=== PATIENT | female | born 1950 | race Caucasian/White ===

== ENCOUNTER → 2017-10-31 08:51 | Outpatient (CLI) | payer MEDICARE, OTHER, SELFPAY ==
[2017-10-31 10:49] LABS: Ferritin 289 ng/mL (8-252)
== END ==
PROVIDERS: Family Provider Family Medicine; PCP Family Medicine; Visit Provider Internal Medicine Gastroenterology
DX: R79.89 Other specified abnormal findings of blood chemistry (principal)
CPT/HCPCS: 36415; 82728

== ENCOUNTER → 2018-01-31 08:53 | Outpatient (CLI) | payer MEDICARE, OTHER, SELFPAY ==
[2018-01-31 10:51] LABS: Ferritin 172 ng/mL (8-252)
[2018-01-31 11:04] LABS: Cholesterol 115 mg/dL (200); High Density Lipoprotein 38 mg/dL; Triglycerides 131 mg/dL; Very Low Density Lipoprotein 26 mg/dL (5-40)
== END ==
PROVIDERS: Family Provider Family Medicine; PCP Family Medicine; Visit Provider Internal Medicine Gastroenterology
DX: E78.00 Pure hypercholesterolemia, unspecified (principal); R79.89 Other specified abnormal findings of blood chemistry
CPT/HCPCS: 36415; 80061; 82728

== ENCOUNTER → 2018-05-14 10:45 | Outpatient (CLI) | payer MEDICARE, OTHER, SELFPAY ==
[2018-05-14 12:05] LABS: Absolute Lymphocyte Count 2.12 X10^3/ul (0.83-4.51); Absolute Neutrophil Count 2.5 X10^3/uL (2.0-7.7); Basophil# 0.03 X10^3/uL; Basophil% 0.5 % (0-1); Eosinophil# 0.09 X10^3/uL; Eosinophils% 1.6 % (0-5); Hematocrit 42.9 % (37-47); Hemoglobin 14.3 g/dl (12.0-15.0); Lymphocyte # 2.12 X10^3/ul (4.0); Lymphocyte % 38.7 % (19-41); Mean Corp Hgb Conc 33.3 g/gl (32-36); Mean Corpuscular Hgb 31.7 pg (27.0-32.0); Mean Corpuscular Volume 95.1 fL (81-99); Mean Platelet Vol. 10.1 fl (6.2-12.0); Monocyte# 0.76 X10^3/uL; Monocyte% 13.9 % (0-10); Neutrophil # 2.47 X10^3/uL (2.7-7.7); Neutrophil % 45.1 % (47-70); Platelet Count 266 K/mm3 (150-450); RBC Distribution Width CV 13.1 % (11.6-14.6); RBC Distribution Width SD 44.3 fl (35.1-43.9); Red Blood Count 4.51 M/mm3 (4.2-5.4); White Blood Count 5.5 K/mm3 (4.4-11.0)
[2018-05-14 12:07] LABS: POSITIVE COUNT NO; POSITIVE DIFFERENTIAL NO; POSITIVE MORPHOLOGY NO
[2018-05-14 12:15] LABS: Vitamin D,25 Hydroxy 31.4 ng/mL (29.95-100.01)
[2018-05-14 12:25] LABS: ALB/GLOB Ratio 1.1 RATIO (0.9-2.4); AST(SGOT) 40 U/L (15-37); Alanine Aminotransfer ALT/SGPT 48 U/L (13-56); Albumin, Serum 3.9 g/dL (3.2-5.0); Alkaline Phosphatase 62 U/L (45-117); Anion Gap 7 (5-15); BUN 9 mg/dL (7-18); BUN/Creat Ratio 14.5 RATIO (10-20); Chloride 107 mmol/L (98-107); Cholesterol 154 mg/dL (200); Creatinine, Serum 0.62 mg/dL (0.55-1.02); EST Glomerular Filtration Rate 102 mL/min (>60); Est Glom Filt Rate - Afr Amer 124 mL/min (>60); Ferritin 216 ng/mL (8-252); Globulin 3.6 g/dL (2.2-4.2); Glucose 95 mg/dL (74-106); High Density Lipoprotein 39 mg/dL; Potassium 4.4 mmol/L (3.5-5.1); Protein, Total 7.5 g/dL (6.4-8.2); Sodium Level 142 mmol/L (136-145); Thyroid Stim Hormone (TSH) 3.32 uIU/mL (0.358-3.74); Triglycerides 142 mg/dL; Very Low Density Lipoprotein 28 mg/dL (5-40)
== END ==
PROVIDERS: Family Provider Family Medicine; PCP Family Medicine; Visit Provider Family Medicine
DX: Z00.00 Encounter for general adult medical examination without abnormal findings (principal); K90.0 Celiac disease; E55.9 Vitamin D deficiency, unspecified; M25.50 Pain in unspecified joint; R79.89 Other specified abnormal findings of blood chemistry
CPT/HCPCS: 36415; 80053; 80061; 82306; 82728; 84443; 85025

== ENCOUNTER → 2018-05-15 10:10 | Outpatient (CLI) | payer MEDICARE, OTHER, SELFPAY ==
--- NOTE | 2018-05-15 10:13 | BI_ITS ---
MAMMOGRAPHY - BILATERAL SCREENING 3-D ELIZABETH SYNTHESIS REASON FOR EXAM: Female, 67 years old. Bilateral Screening 3-D tomosynthesis PERTINENT HISTORY: Asymptomatic. No significant family history. TECHNIQUE: 2-D mammograms and 3-D Elizabeth synthesis of the breast (s) were performed. CAD was performed. COMPARISON: 05/10/2017, 04/24/2015 and 04/23/2014. FINDINGS: The breast composition is heterogeneously dense that can obscure small breast masses. Scattered benign appearing calcifications are again seen. No dense spiculated dominant masses or suspicious microcalcification cluster are identified. No new architectural distortion, asymmetric density, adenopathy, skin thickening or nipple retraction identified. There has been no significant change since the most recent prior study. BI/SCREENING MAMM (CAD), BILAT IMPRESSION: No mammographic sign of malignancy. Routine yearly mammograms recommended. ASSESSMENT CATEGORY: BIRADS Category 2: Benign. A letter regarding these results will be sent to the patient by the facility within 30 days. FOLLOW UP RECOMMENDATION: Yearly follow up mammogram recommended. (A) Negative mammographic results should not deter biopsy as a palpable lesion if present should be followed on clinical grounds and biopsy performed if clinically persistent for 3 months or increasing size. Approximately 10% of breast cancers are not detected by mammography. A normal mammogram should not delay biopsy of a clinically suspicious abnormality. Dense breast tissue mainstream neoplasm. Electronically Signed: Des Berumen, at 14:40 EDT Tel , Service support ,
== END ==
PROVIDERS: Family Provider Family Medicine; PCP Family Medicine; Visit Provider Family Medicine
DX: Z12.31 Encounter for screening mammogram for malignant neoplasm of breast (principal)
CPT/HCPCS: 77063; 77067

== ENCOUNTER → 2018-10-29 08:30 | Outpatient (CLI) | payer MEDICARE, OTHER, SELFPAY ==
[2018-10-29 11:13] LABS: Ferritin 158 ng/mL (8-252)
== END ==
LOC: LAB.FUTURE 08:31 → MTLAB 01-29 07:55
PROVIDERS: Family Provider Family Medicine; PCP Family Medicine; Referring Provider Internal Medicine Gastroenterology; Visit Provider Internal Medicine Gastroenterology
DX: R79.89 Other specified abnormal findings of blood chemistry (principal)
CPT/HCPCS: 36415; 82728

== ENCOUNTER → 2019-01-29 08:02 | Outpatient (CLI) | payer MEDICARE, OTHER, SELFPAY ==
[2019-01-29 10:22] LABS: Ferritin 146 ng/mL (8-252)
== END ==
PROVIDERS: Family Provider Family Medicine; PCP Family Medicine; Referring Provider Internal Medicine Gastroenterology; Visit Provider Internal Medicine Gastroenterology
DX: R79.89 Other specified abnormal findings of blood chemistry (principal)
CPT/HCPCS: 36415; 82728

== ENCOUNTER → 2019-02-01 14:53 | Outpatient (CLI) | payer MEDICARE, OTHER, SELFPAY ==
[2019-02-04 18:45] LABS: Endomysial Antibody IgA Negative (Negative); Immunoglobulin A 75 mg/dL (87-352)
[2019-02-05 16:36] LABS: t-Transglutaminase IgA <2 U/mL (0-3)
== END ==
PROVIDERS: Family Provider Family Medicine; PCP Family Medicine; Referring Provider Internal Medicine Gastroenterology; Visit Provider Internal Medicine Gastroenterology
DX: R19.7 Diarrhea, unspecified (principal)
CPT/HCPCS: 36415; 82784; 83516; 86140; 86255

== ENCOUNTER → 2019-03-25 16:30 | Outpatient (CLI) | payer MEDICARE, OTHER, SELFPAY | PROVIDERS: Family Provider Family Medicine; PCP Family Medicine; Referring Provider Internal Medicine Gastroenterology; Visit Provider Internal Medicine Gastroenterology | DX: K90.0 Celiac disease (principal) | CPT/HCPCS: 36415 ==

== ENCOUNTER → 2019-05-16 10:22 | Outpatient (CLI) | payer MEDICARE, OTHER, SELFPAY ==
[2019-05-16 12:43] LABS: Microalbumin,Random Urine 5.8 mg/L (NO RANGE EST.); Microalbumin:Creatinine Ratio 10.3 mg/g CRE (<30 mg/g CRE)
[2019-05-16 12:45] LABS: Vitamin B12 840 pg/mL (211-911); Vitamin D,25 Hydroxy 31.9 ng/mL (29.95-100.01)
[2019-05-16 12:46] LABS: PTHIN 51.4 pg/mL (18.4-80.1)
[2019-05-16 13:29] LABS: ALB/GLOB Ratio 1.3 RATIO (0.9-2.4); AST(SGOT) 28 U/L (15-37); Alanine Aminotransfer ALT/SGPT 42 U/L (13-56); Albumin, Serum 4.3 g/dL (3.2-5.0); Alkaline Phosphatase 59 U/L (45-117); Anion Gap 6 (5-15); BUN 12 mg/dL (7-18); Calcium,Total 9.2 mg/dL (8.5-10.1); Chloride 109 mmol/L (98-107); Cholesterol 116 mg/dL (200); Creatinine, Serum 0.67 mg/dL (0.55-1.02); EST Glomerular Filtration Rate 93 mL/min (>60); Est Glom Filt Rate - Afr Amer 113 mL/min (>60); Globulin 3.3 g/dL (2.2-4.2); Glucose 92 mg/dL (74-106); High Density Lipoprotein 40 mg/dL; Magnesium 2.5 mg/dL (1.6-2.6); Potassium 4.7 mmol/L (3.5-5.1); Protein, Total 7.6 g/dL (6.4-8.2); Sodium Level 143 mmol/L (136-145); Thyroid Stim Hormone (TSH) 2.65 uIU/mL (0.358-3.74); Triglycerides 115 mg/dL; Very Low Density Lipoprotein 23 mg/dL (5-40)
[2019-05-20 13:06] LABS: Copper, Serum or Plasma 104 ug/dL (72-166); Zinc, Plasma or Serum 72 ug/dL (56-134)
== END ==
PROVIDERS: Family Provider Family Medicine; PCP Family Medicine; Referring Provider Family Medicine; Visit Provider Family Medicine
DX: E78.00 Pure hypercholesterolemia, unspecified (principal); K90.0 Celiac disease; E55.9 Vitamin D deficiency, unspecified; I10 Essential (primary) hypertension
CPT/HCPCS: 36415; 80053; 80061; 82043; 82306; 82525; 82570; 82607; 82746; 83735; 83970; 84443; 84630

== ENCOUNTER → 2019-06-05 08:09 | Outpatient (CLI) | payer MEDICARE, OTHER, SELFPAY ==
--- NOTE | 2019-06-05 08:12 | US_ITS ---
STUDY: ABDOMINAL ULTRASOUND - RIGHT UPPER QUADRANT REASON FOR VISIT: Female, 68 years old nausea, 50 liver, status post cholecystectomy. TECHNIQUE: Ultrasound evaluation of the right upper quadrant was performed with real-time and static vincent-scale imaging. TECHNICAL QUALITY: Limited. Examination limited by bowel gas. COMPARISON: None. FINDINGS: Liver: The liver measures 15.7 cm. There is increased echogenicity consistent with fatty infiltration. The bile ducts are within normal limits. There is hepatic color flow. The direction of portal flow is hepatopetal. There is no demonstrated mass lesion. Gallbladder: The patient is status post cholecystectomy into thousand 3. Common Bile Duct (C.B.D.): The common bile duct measures 7.1 mm. Pancreas: Normal size of the visualized portion of the body, remainder of the pancreas being obscured. There is normal echogenicity of the visualized pancreas. There is no demonstrated pancreatic mass or cyst in the visualized portion. Right Kidney: Normal size of the right kidney. The right kidney measures 11.5 x 5.4 x 4.9 cm. Normal renal cortex. The right cortex measures 1.4 cm. There is no demonstrated renal mass or cyst. There is no right hydronephrosis. There is slight malrotation of the right kidney with mild lobulations. US/Abdomen Limited IMPRESSION: Status post cholecystectomy, remainder of the right upper quadrant ultrasound examination unremarkable. Electronically Signed: Sachi Latham MD at 4:27 EDT , Service support ,
== END ==
PROVIDERS: Family Provider Family Medicine; PCP Family Medicine; Referring Provider Internal Medicine Gastroenterology; Visit Provider Internal Medicine Gastroenterology
DX: R11.0 Nausea (principal); K76.0 Fatty (change of) liver, not elsewhere classified; Z90.49 Acquired absence of other specified parts of digestive tract
CPT/HCPCS: 76705

== ENCOUNTER → 2019-11-20 11:25 | Outpatient (CLI) | payer MEDICARE, OTHER, SELFPAY ==
[2019-11-20 12:38] LABS: Anion Gap 4 (5-15); BUN 10 mg/dL (7-18); BUN/Creat Ratio 16.4 RATIO (10-20); Calcium,Total 9.4 mg/dL (8.5-10.1); Chloride 108 mmol/L (98-107); Creatinine, Serum 0.61 mg/dL (0.55-1.02); EST Glomerular Filtration Rate 104 mL/min (>60); Est Glom Filt Rate - Afr Amer 126 mL/min (>60); Glucose 89 mg/dL (74-106); Potassium 4.7 mmol/L (3.5-5.1); Sodium Level 142 mmol/L (136-145)
== END ==
PROVIDERS: PCP Family Medicine; Referring Provider Family Medicine; Visit Provider Family Medicine
DX: I10 Essential (primary) hypertension (principal)
CPT/HCPCS: 36415; 80048

== ENCOUNTER → 2020-05-19 09:39 | Outpatient (CLI) | payer MEDICARE, OTHER, SELFPAY ==
[2020-05-19 12:59] LABS: Microalbumin,Random Urine 8.9 mg/L (NO RANGE EST.); Microalbumin:Creatinine Ratio 12.2 mg/g CRE (<30 mg/g CRE)
[2020-05-19 13:12] LABS: Vitamin B12 523 pg/mL (211-911); Vitamin D,25 Hydroxy 46.9 ng/mL
[2020-05-19 13:17] LABS: ALB/GLOB Ratio 1.2 RATIO (0.9-2.4); AST(SGOT) 24 U/L (15-37); Alanine Aminotransfer ALT/SGPT 33 U/L (13-56); Alkaline Phosphatase 58 U/L (45-117); Anion Gap 5 (5-15); BUN 11 mg/dL (7-18); Calcium,Total 8.8 mg/dL (8.5-10.1); Chloride 107 mmol/L (98-107); Cholesterol 132 mg/dL (200); Creatinine, Serum 0.61 mg/dL (0.55-1.02); EST Glomerular Filtration Rate 103 mL/min (>60); Est Glom Filt Rate - Afr Amer 125 mL/min (>60); Ferritin 131 ng/mL (8-252); Globulin 3.3 g/dL (2.2-4.2); Glucose 88 mg/dL (74-106); High Density Lipoprotein 42 mg/dL; Potassium 4.2 mmol/L (3.5-5.1); Protein, Total 7.3 g/dL (6.4-8.2); Sodium Level 140 mmol/L (136-145); Thyroid Stim Hormone (TSH) 3.27 uIU/mL (0.358-3.74); Triglycerides 175 mg/dL; Very Low Density Lipoprotein 35 mg/dL (5-40)
== END ==
PROVIDERS: PCP Family Medicine; Referring Provider Family Medicine; Visit Provider Family Medicine
DX: E55.9 Vitamin D deficiency, unspecified (principal); K90.0 Celiac disease; I10 Essential (primary) hypertension; E78.00 Pure hypercholesterolemia, unspecified
CPT/HCPCS: 36415; 80053; 80061; 82043; 82306; 82570; 82607; 82728; 84443

== ENCOUNTER 2020-05-20 09:13 | Outpatient (RCR) | payer MEDICARE, OTHER, SELFPAY ==
--- NOTE | 2020-05-20 10:31 | HP.OTEVAL_ITS ---
Patient's Visit Information JACQUE WINSTON is a 69 year old F, referred to Occupational Therapy by Dr. Marcus Bernal MD, with a diagnosis of right LE lymphedema. Date of Evaluation: 05/20/20 Occupational Therapist: Marcia Worrell, OTR/Deion, CHT - Subjective This 69 year old female was seen for OT eval for right LE edema. pt states she has had swelling in her ankle for about 2 years. pt states she had right knee sx about two years ago and notices her right leg is larger than her left. pt states most noticable with putting pants on- pants are tighter on right leg then left. pt does not have compression hose. pt is getting ready to leave for [place] for the winter. - Lymphedema (Circumferential Measure) Mid-foot: right 22cm left 22cm Ankle: right 23cm left 23cm Lower calf: right 25cm left 23cm Largest calf: right 42cm left 41cm Below knee: right 39.5cm left 38.5cm - Sensation Sensation Comments: denies - Goals Demonstrate adequate knowledge skin care/prec by 2nd week: Yes Demonstrate adequate knowledge therapeutic exercises by d/c: Yes Select approp compression garment w/donning/care/wear by d/c: Yes Voice need to replace compression garment every 4-6mo by dc: Yes - Rehabilitation General Assessment: pt demo with stage I lymphedema and would benefit from use of compression socks 15-20mmHg. Today therapist ed. pt on use of compression socks, skin care and beneficial exercises. pt demo understanding. Pt receptive to get compression socks- therapist ed. pt on fit and compression class and where to buy the socks- This facility is not a Durable medical supply facility and can not get the garments for pt pt advised to look at [employer]/ [facility] [employer] [facility]. pt demo understanding and agree. pt to call with questions or concerns prior to her travel to [place] for the winter. Rehabilitation Potential: Good - Anticipated Interventions Education re Diagnosis, Education re Life-long lymphedema Management, Education re Skin Care and Precautions, Education re Correct Donning Tech,Care&Wearing Sched Comp Garments, Home Program - Visit Plan TEXT: Thank you for the opportunity to evaluate your patient. For Medicare and Medicare HMO plans, please review the plan of care and approve it. It will need to be FAXED BACK to us at [phone] for Medicare purposes. Please let me know if there are questions or concerns regarding this plan of care. Physician Signature: Date:
--- NOTE | 2020-07-07 13:52 | HP.OT.NRP ---
JACQUE WINSTON was seen in my office for initial evaluation on 05/20/20. The following Plan of Care was established for this patient: Anticipated Interventions: Education re Diagnosis, Education re Life-long lymphedema Management, Education re Skin Care and Precautions, Education re Correct Donning Tech,Care&Wearing Sched Comp Garments, Home Program This patient was last seen in our office 05/20/20. Pertinent comments regarding their Occupational therapy will appear below: pt seen for eval only- no further apts scheduled and due to time lapse in services pt d/c. At this point I will be discontinuing this patient from occupational therapy. I would be happy to see this patient again in the future if found appropriate by the physician. Thank you! Marcia Worrell, OTR/L, CHT
== END 2020-05-20 19:00 | disposition home or self-care (01) ==
LOC: OT 09:13
PROVIDERS: PCP Family Medicine; Referring Provider Family Medicine; Visit Provider Family Medicine
DX: I89.0 Lymphedema, not elsewhere classified (principal)
CPT/HCPCS: 97165; 97166; 97530

== ENCOUNTER → 2020-06-08 07:43 | Outpatient (CLI) | payer MEDICARE, OTHER, SELFPAY ==
--- NOTE | 2020-06-08 07:48 | BI_ITS ---
MAMMOGRAPHY - BILATERAL SCREENING REASON FOR EXAM: Female, 69 years old. Routine annual screening examination. PERTINENT HISTORY: Non-contributory. TECHNIQUE: Digital bilateral breast elizabeth (3D mammographic acquisition) in the CC and MLO projections. 2-D mediolateral oblique (MLO) and craniocaudad (CC) views of both breasts were obtained. CAD: Full Field Digital Mammography with Computer Added Detection was performed. COMPARISON: Comparison is made with prior study of 05/15/2018 and 05/10/2017. FINDINGS: Breast Composition: There are scattered areas of fibroglandular density. There are no dominant masses or suspicious calcifications. Stable benign-appearing bilateral axillary lymph nodes. No other significant abnormalities are identified. There has been no significant change since the prior study. BI/SCREEN MAMM (CAD) W/ELIZABETH BILAT IMPRESSION: Stable bilateral screening mammogram. Yearly follow-up mammogram recommended. (A) ASSESSMENT CATEGORY: BIRADS Category 2: Benign. A letter regarding these results will be sent to the patient by the facility within 30 days. Approximately 10% of breast cancers are not detected by mammography. A normal mammogram should not delay biopsy of a clinically suspicious abnormality. [id number] Electronically Signed: Tung Salazar, at 8:47 EST , Service support ,
== END ==
PROVIDERS: PCP Family Medicine; Referring Provider Family Medicine; Visit Provider Family Medicine
DX: Z12.31 Encounter for screening mammogram for malignant neoplasm of breast (principal)
CPT/HCPCS: 77063; 77067

== ENCOUNTER → 2020-12-02 08:39 | Outpatient (CLI) | payer MEDICARE, OTHER, SELFPAY ==
[2020-12-02 10:26] LABS: Absolute Lymphocyte Count 2.71 X10^3/uL (0.83-4.51); Absolute Neutrophil Count 4.6 X10^3/uL (2.0-7.7); Basophil# 0.03 X10^3/uL; Basophil% 0.4 % (0-1); Eosinophil# 0.09 X10^3/uL; Eosinophils% 1.1 % (0-5); Hematocrit 44.5 % (37-47); Hemoglobin 13.7 g/dL (12.0-15.0); Lymphocyte # 2.71 X10^3/ul (0.83-4.51); Mean Corp Hgb Conc 30.8 g/dL (32-36); Mean Corpuscular Volume 97.4 fL (81-99); Mean Platelet Vol. 9.9 fl (6.2-12.0); Monocyte# 0.74 X10^3/uL; NRBC Flagged by Analyzer 0 % (0-5); Neutrophil # 4.61 X10^3/uL (2.7-7.7); Neutrophil % 56.1 % (47-70); Platelet Count 257 K/mm3 (150-450); RBC Distribution Width CV 13.4 % (11.6-14.6); RBC Distribution Width SD 48.2 fl (35.1-43.9); Red Blood Count 4.57 M/mm3 (4.2-5.4); White Blood Count 8.2 K/mm3 (4.4-11.0)
[2020-12-02 10:38] LABS: ALB/GLOB Ratio 1.1 RATIO (0.9-2.4); AST(SGOT) 18 U/L (15-37); Alanine Aminotransfer ALT/SGPT 31 U/L (13-56); Albumin, Serum 3.7 g/dL (3.2-5.0); Alkaline Phosphatase 53 U/L (45-117); Anion Gap 5 (5-15); BUN 17 mg/dL (7-18); BUN/Creat Ratio 23.2 RATIO (10-20); Calcium,Total 8.7 mg/dL (8.5-10.1); Chloride 107 mmol/L (98-107); Creatinine, Serum 0.73 mg/dL (0.55-1.02); EST Glomerular Filtration Rate 84 mL/min (>60); Est Glom Filt Rate - Afr Amer 101 mL/min (>60); Globulin 3.3 g/dL (2.2-4.2); Glucose 105 mg/dL (74-106); Potassium 4.4 mmol/L (3.5-5.1); Sodium Level 139 mmol/L (136-145)
== END ==
PROVIDERS: PCP Family Medicine; Referring Provider Family Medicine; Visit Provider Family Medicine
DX: N30.00 Acute cystitis without hematuria (principal); K90.0 Celiac disease
CPT/HCPCS: 36415; 80053; 85025; 87077; 87086; 87088; 87186

== ENCOUNTER → 2021-05-25 07:18 | Outpatient (CLI) | payer MEDICARE, OTHER, SELFPAY ==
--- NOTE | 2021-05-25 07:29 | MRI_ITS ---
STUDY: MRI RIGHT FOREFOOT WITHOUT CONTRAST REASON FOR EXAM: Discomfort of right second toe for about 3 months. TECHNIQUE: Standardized fat and water weighted pulse sequences were obtained in all 3 orthogonal planes. COMPARISON: Radiographs 03/26/2013. FINDINGS: Normal metatarsophalangeal joint of the hallux. Normal tibial and fibular sesamoids, with normal sesamoids-first metatarsal articulations. Normal interphalangeal joint of the hallux. Normal proximal and distal phalanges of the great toe. Normal medial and lateral heads of the flexor hallucis brevis tendons. Normal flexor and extensor hallucis longus tendons. Normal second through fifth metatarsophalangeal (MTP) joints. Normal interphalangeal joints of the second through fifth toes. There is bone edema of the second proximal phalanx, sparing only the head (inversion recovery sagittal image 15). Normal middle and distal phalanges of the second digit. Normal proximal, middle and distal phalanges of the third through fifth toes. There is an intermetatarsal neuroma of the second webspace (T1 series 4 images 15, 16) measuring 0.5 cm in transverse dimension. Normal flexor and extensor tendons of the second through fifth toes. There is slight bone edema in the dorsal base of the fourth metatarsal (inversion recovery sagittal image 9). There is no metatarsal stress fracture. There is an incidental bone island in the dorsal distal first metatarsal (T1 sagittal image 20). Normal intrinsic muscles of the forefoot. There is very mild edema in the dorsal subcutis adipose space. MRI/Lower Ext/No Jt/w/o IMPRESSION: Intermetatarsal neuroma of the second webspace. Bone edema of the second proximal phalanx. Slight bone edema in the dorsal fourth metatarsal base. Electronically Signed: Triston Yoo MD at 13:39 EDT Tel , Service support ,
== END ==
PROVIDERS: PCP Family Medicine; Referring Provider Podiatrist; Visit Provider Podiatrist
DX: M77.41 Metatarsalgia, right foot (principal)
CPT/HCPCS: 73718

== ENCOUNTER → 2021-05-26 09:56 | Outpatient (CLI) | payer MEDICARE, OTHER, SELFPAY ==
[2021-05-26 12:19] LABS: CRP < 2.90 mg/L (0.0-3.0)
[2021-05-27 17:07] LABS: Endomysial Antibody IgA Negative (Negative); Immunoglobulin A 83 mg/dL (87-352)
[2021-05-28 08:18] LABS: t-Transglutaminase IgA <2 U/mL (0-3)
== END ==
PROVIDERS: PCP Family Medicine; Referring Provider Internal Medicine Gastroenterology; Visit Provider Internal Medicine Gastroenterology
DX: K90.0 Celiac disease (principal)
CPT/HCPCS: 36415; 82784; 83516; 86140; 86255

== ENCOUNTER → 2021-06-01 09:39 | Outpatient (CLI) | payer MEDICARE, OTHER, SELFPAY ==
[2021-06-01 12:22] LABS: Absolute Lymphocyte Count 2.33 X10^3/uL (0.83-4.51); Absolute Neutrophil Count 2.9 X10^3/uL (2.0-7.7); Basophil# 0.05 X10^3/uL; Basophil% 0.8 % (0-1); Eosinophil# 0.11 X10^3/uL; Eosinophils% 1.8 % (0-5); Hematocrit 44.7 % (37-47); Hemoglobin 14.8 g/dL (12.0-15.0); Lymphocyte # 2.33 X10^3/ul (0.83-4.51); Lymphocyte % 38.4 % (19-41); Mean Corp Hgb Conc 33.1 g/dL (32-36); Mean Corpuscular Hgb 31.2 pg (27.0-32.0); Mean Corpuscular Volume 94.3 fL (81-99); Mean Platelet Vol. 10.6 fl (6.2-12.0); Monocyte# 0.66 X10^3/uL; Monocyte% 10.9 % (0-10); NRBC Flagged by Analyzer 0 % (0-5); Neutrophil % 47.9 % (47-70); Platelet Count 255 K/mm3 (150-450); RBC Distribution Width SD 45.2 fl (35.1-43.9); Red Blood Count 4.74 M/mm3 (4.2-5.4); White Blood Count 6.1 K/mm3 (4.4-11.0)
[2021-06-01 12:34] LABS: Vitamin B12 753 pg/mL (211-911); Vitamin D,25 Hydroxy 35.7 ng/mL
[2021-06-01 12:52] LABS: ALB/GLOB Ratio 1.1 RATIO (0.9-2.4); AST(SGOT) 20 U/L (15-37); Alanine Aminotransfer ALT/SGPT 29 U/L (13-56); Albumin, Serum 4.2 g/dL (3.2-5.0); Alkaline Phosphatase 61 U/L (45-117); Anion Gap 9 (5-15); BUN 14 mg/dL (7-18); BUN/Creat Ratio 21.9 RATIO (10-20); Calcium,Total 9.1 mg/dL (8.5-10.1); Chloride 107 mmol/L (98-107); Cholesterol 136 mg/dL (200); Creatinine, Serum 0.64 mg/dL (0.55-1.02); EST Glomerular Filtration Rate 98 mL/min (>60); Est Glom Filt Rate - Afr Amer 118 mL/min (>60); Ferritin 153 ng/mL (8-252); Globulin 3.8 g/dL (2.2-4.2); Glucose 101 mg/dL (74-106); High Density Lipoprotein 44 mg/dL; Potassium 4.2 mmol/L (3.5-5.1); Sodium Level 140 mmol/L (136-145); Triglycerides 142 mg/dL; Very Low Density Lipoprotein 28 mg/dL (5-40)
== END ==
PROVIDERS: PCP Family Medicine; Referring Provider Family Medicine; Visit Provider Family Medicine
DX: K90.0 Celiac disease (principal); E78.00 Pure hypercholesterolemia, unspecified
CPT/HCPCS: 36415; 80053; 80061; 82306; 82607; 82728; 85025

== ENCOUNTER → 2021-06-14 07:43 | Outpatient (CLI) | payer MEDICARE, OTHER, SELFPAY ==
--- NOTE | 2021-06-14 07:45 | US_ITS ---
STUDY: ABDOMINAL ULTRASOUND - RIGHT UPPER QUADRANT REASON FOR VISIT: Female, 70 years old FATTY LIVER TECHNIQUE: Ultrasound evaluation of the right upper quadrant was performed with real-time and static vincent-scale imaging. TECHNICAL QUALITY: Adequate. COMPARISON: Comparison is made with prior examination dated 06/05/2019. FINDINGS: Liver: The liver measures 15.9 cm. There is increased echogenicity consistent with fatty infiltration. The bile ducts are within normal limits. There is hepatic color flow. The direction of portal flow is hepatopetal. There is no demonstrated mass lesion. Gallbladder: The patient is status post cholecystectomy. Common Bile Duct (C.B.D.): The common bile duct measures 7.2 mm. Pancreas: Normal size of the head, body and tail of the pancreas. There is increased echogenicity of the pancreas. There is no demonstrated pancreatic mass or cyst. Right Kidney: Normal size of the right kidney. The right kidney measures 11.3 cm x 3.5 cm x 5 cm. Normal renal cortex. The right cortex measures 1.5 cm. There is no demonstrated renal mass or cyst. There is no right hydronephrosis. IMPRESSION: Fatty infiltration of the liver. The patient is status post cholecystectomy. Electronically Signed: Tung Salazar MD at 9:01 EST , Service support , STUDY: ABDOMINAL ULTRASOUND - ELASTOGRAPHY REASON FOR VISIT: Female, 70 years old. Fatty infiltration of the liver. TECHNIQUE: Liver stiffness measurements were obtained on a [employer] 85 ultrasound machine using a CA 1-7 probe following the SRU guidelines. 3 measurements were obtained using a 2-D-SWE method. The IQR/M was 20% suggesting a quality data set. TECHNICAL QUALITY: Adequate. COMPARISON: None. FINDINGS: Liver: There is diffuse fatty infiltration of the liver. Median liver stiffness measured 6.4 kPa. US/Abdomen Limited IMPRESSION: Liver stiffness measures 6.4 kPa compatible with F2 Metavir score. Electronically Signed: Tung Salazar MD at 9:03 EST , Service support ,
--- NOTE | 2021-06-14 07:46 | US_ITS ---
STUDY: ABDOMINAL ULTRASOUND - RIGHT UPPER QUADRANT REASON FOR VISIT: Female, 70 years old FATTY LIVER TECHNIQUE: Ultrasound evaluation of the right upper quadrant was performed with real-time and static vincent-scale imaging. TECHNICAL QUALITY: Adequate. COMPARISON: Comparison is made with prior examination dated 06/05/2019. FINDINGS: Liver: The liver measures 15.9 cm. There is increased echogenicity consistent with fatty infiltration. The bile ducts are within normal limits. There is hepatic color flow. The direction of portal flow is hepatopetal. There is no demonstrated mass lesion. Gallbladder: The patient is status post cholecystectomy. Common Bile Duct (C.B.D.): The common bile duct measures 7.2 mm. Pancreas: Normal size of the head, body and tail of the pancreas. There is increased echogenicity of the pancreas. There is no demonstrated pancreatic mass or cyst. Right Kidney: Normal size of the right kidney. The right kidney measures 11.3 cm x 3.5 cm x 5 cm. Normal renal cortex. The right cortex measures 1.5 cm. There is no demonstrated renal mass or cyst. There is no right hydronephrosis. IMPRESSION: Fatty infiltration of the liver. The patient is status post cholecystectomy. Electronically Signed: Tung Salazar MD at 9:01 EST , Service support , STUDY: ABDOMINAL ULTRASOUND - ELASTOGRAPHY REASON FOR VISIT: Female, 70 years old. Fatty infiltration of the liver. TECHNIQUE: Liver stiffness measurements were obtained on a [employer] 85 ultrasound machine using a CA 1-7 probe following the SRU guidelines. 3 measurements were obtained using a 2-D-SWE method. The IQR/M was 20% suggesting a quality data set. TECHNICAL QUALITY: Adequate. COMPARISON: None. FINDINGS: Liver: There is diffuse fatty infiltration of the liver. Median liver stiffness measured 6.4 kPa. US/Elastography Parenchyma/Organ IMPRESSION: Liver stiffness measures 6.4 kPa compatible with F2 Metavir score. Electronically Signed: Tung Salazar MD at 9:03 EST , Service support ,
[2021-06-15 16:33] LABS: Immunoglobulin G 999 mg/dL (586-1602)
== END ==
PROVIDERS: PCP Family Medicine; Referring Provider Internal Medicine Gastroenterology; Visit Provider Internal Medicine Gastroenterology
DX: K76.0 Fatty (change of) liver, not elsewhere classified (principal); K90.0 Celiac disease
CPT/HCPCS: 36415; 76705; 76981; 82784; 83516

== ENCOUNTER → 2022-01-05 | Outpatient (CLI) | payer MEDICARE, OTHER, SELFPAY ==
[2022-01-05 10:04] LABS: Hematocrit 41.9 % (37-47); Hemoglobin 13.9 g/dL (12.0-15.0); Mean Corp Hgb Conc 33.2 g/dL (32-36); Mean Corpuscular Volume 93.5 fL (81-99); Mean Platelet Vol. 10.4 fl (6.2-12.0); Platelet Count 235 K/mm3 (150-450); RBC Distribution Width CV 12.5 % (11.6-14.6); Red Blood Count 4.48 M/mm3 (4.2-5.4); White Blood Count 5.8 K/mm3 (4.4-11.0)
[2022-01-05 10:47] LABS: Vitamin D,25 Hydroxy 49.7 ng/mL
[2022-01-05 11:08] LABS: ALB/GLOB Ratio 1.1 RATIO (0.9-2.4); AST(SGOT) 21 U/L (15-37); Alanine Aminotransfer ALT/SGPT 32 U/L (13-56); Albumin, Serum 3.8 g/dL (3.2-5.0); Alkaline Phosphatase 58 U/L (45-117); Anion Gap 8 (5-15); BUN 11 mg/dL (7-18); BUN/Creat Ratio 19.2 RATIO (10-20); Calcium,Total 8.9 mg/dL (8.5-10.1); Chloride 108 mmol/L (98-107); Creatinine, Serum 0.57 mg/dL (0.55-1.02); EST Glomerular Filtration Rate 111 mL/min (>60); Est Glom Filt Rate - Afr Amer 134 mL/min (>60); Globulin 3.4 g/dL (2.2-4.2); Glucose 113 mg/dL (74-106); Potassium 3.9 mmol/L (3.5-5.1); Protein, Total 7.2 g/dL (6.4-8.2); Sodium Level 141 mmol/L (136-145)
[2022-01-06 17:07] LABS: Endomysial Antibody IgA Negative (Negative)
[2022-01-07 08:44] LABS: Immunoglobulin A 87 mg/dL (87-352); t-Transglutaminase IgA <2 U/mL (0-3)
== END | disposition home or self-care (01) ==
LOC: MTLAB 09:02
PROVIDERS: PCP Family Medicine; Referring Provider Internal Medicine Gastroenterology; Visit Provider Internal Medicine Gastroenterology
DX: K90.0 Celiac disease (principal)
CPT/HCPCS: 36415; 80053; 82306; 82784; 83516; 85027; 86255

== ENCOUNTER → 2022-02-25 | Outpatient (CLI) | payer MEDICARE, OTHER, SELFPAY ==
--- NOTE | 2022-02-25 07:03 | CT_ITS ---
STUDY: CT CHEST WITHOUT CONTRAST REASON FOR EXAM: Female, 71 years old. Asthma RADIATION DOSAGE (If Supplied By Facility): CTDIvol = ( 15.08 ) mGy, DLP = ( 545.67 ) mGycm TECHNIQUE: Transaxial imaging was performed without the administration of intravenous contrast material. Multiplanar coronal and sagittal images were reformatted. Individualized dose optimization techniques were used for this CT. COMPARISON: Comparison is made with prior chest radiograph dated 12/03/2014. FINDINGS: CHEST Small benign-appearing bilateral axillary lymph nodes. Minimally enlarged right lobe of the thyroid gland. Mild degree of increased markings in the posterior aspect of the lingular segment of the left upper lobe as well as in the medial aspect of the right middle lobe suggestive of either scarring and/or atelectasis. This was seen on prior chest radiograph There is no demonstrated pleural abnormality. There are calcifications of the coronary arteries. There are multiple small lymph nodes within the mediastinum, which are normal in size and morphology most compatible with reactive lymph hyperplasia. Normal hilar regions. Normal unenhanced pulmonary arteries. There is atherosclerotic calcification of the aortic arch. There are multi-level degenerative changes of the thoracic spine. Small hiatal hernia. CT/Chest without Contrast IMPRESSION: Mild scarring and/or atelectasis along the posterior aspect of the lingular segment of the left upper lobe as well as the medial aspect of the right middle lobe. Electronically Signed: Tung Salazar MD at 8:27 EDT ,
== END | disposition home or self-care (01) ==
LOC: CT 07:01
PROVIDERS: PCP Family Medicine; Referring Provider Family Medicine; Visit Provider Family Medicine
DX: J45.901 Unspecified asthma with (acute) exacerbation (principal)
CPT/HCPCS: 71250

== ENCOUNTER → 2022-11-15 | Outpatient (CLI) | payer MEDICARE, OTHER, SELFPAY ==
--- NOTE | 2022-11-15 13:05 | BI_ITS ---
MAMMOGRAPHY - BILATERAL SCREENING 3-D TOMOSYNTHESIS REASON FOR EXAM: Female, 72 years old. SCREENING PERTINENT HISTORY: No significant family history. TECHNIQUE: 2-D mammograms and 3-D Tomosynthesis of the breast (s) were performed. CAD was performed. COMPARISON: 06/08/2020 FINDINGS: The breast composition is composed of scattered fibroglandular density. Scattered benign calcifications are seen. No dense spiculated masses or suspicious microcalcifications are identified. No architectural distortion is identified. There is no skin thickening or retraction. There has been no significant change since the prior study. BI/SCRN MAMM (CAD)W/ELIZABETH BILAT IMPRESSION: No mammographic signs of malignancy. Routine yearly mammograms recommended. ASSESSMENT CATEGORY: BIRADS Category 2: Benign. A letter regarding these results will be sent to the patient by the facility within 30 days. FOLLOW UP RECOMMENDATION: Yearly follow up mammogram recommended. (A) Approximately 10% of breast cancers are not detected by mammography. A normal mammogram should not delay biopsy of a clinically suspicious abnormality. Electronically Signed: Henrique Caraballo MD at 14:13 EDT ,
--- NOTE | 2022-11-15 13:17 | BD_ITS ---
STUDY: DUAL ENERGY X-RAY ABSORPTIOMETRY / DXA REASON FOR EXAM: Female, 72 years old. [id number] TECHNIQUE: Bone Mineral Density (BMD) measurements of lumbar spine and bilateral hips were obtained. COMPARISON: Comparison is made with prior study of May 10, 2017. FINDINGS: Lumbar Spine (L1-L4): g/cm2 (0.918) / T-score (-0.6) / Z-score (1.5) Findings are suggestive of normal bone density with a low fracture risk. Left Femur Total: g/cm2 (1.072) / T-score (1.1) / Z-score (2.6) Left Femoral Neck: g/cm2 (0.877) / T-score (0.2) / Z-score (2.1) Right Femur Total: g/cm2 (1.000) / T-score (0.5) / Z-score (2.0) Right Femoral Neck: g/cm2 (0.818) / T-score (-0.3) / Z-score (1.6) The T-Scores on the most recent prior examination were: Lumbar Spine (L1-L4): There has been worsening of bone density since the previous examination. Left Femur Total: which represents no significant change. . Right Femur Total: which represents a worsening of 1.4%. BD/Dexa Bone Density Study IMPRESSION: The patient is considered normal as outlined below according to World [place] Organization (WHO) criteria with a low fracture risk. There has been worsening of bone density since the previous examination. Reference Information: The T-score is the number of standard deviations above or below the standard which is normal for young adults at their peak bone mineral density. The World Health Organization (WHO) interprets the T-scores as follows: Above -1 Normal bone density Between -1 and -2.5 Osteopenia Equal to / or below -2.5 Osteoporosis As a practical clinical guideline, osteopenia may be graded as follows: Mild -1 through -1.5 Moderate -1.6 through -2.0 Severe -2.1 through -2.4 The Z-score is the number of standard deviations above or below age-matched controls. A Z-score of less than -1.5 would be considered abnormal. References: 1. NIH Osteoporosis and Related Bone Diseases www osteo.org 2. International Society for Clinical Densitometry www iscd.org 3. National Osteoporosis Foundation www nof.org Electronically Signed: Tung Salazar MD at 15:48 EDT ,
== END | disposition home or self-care (01) ==
LOC: OPBD 13:01
PROVIDERS: PCP Family Medicine; Referring Provider Nurse Practitioner Family; Visit Provider Nurse Practitioner Family
DX: Z78.0 Asymptomatic menopausal state (principal); Z12.31 Encounter for screening mammogram for malignant neoplasm of breast
CPT/HCPCS: 77063; 77067; 77080

== ENCOUNTER → 2022-11-18 | Outpatient (CLI) | payer MEDICARE, OTHER, SELFPAY ==
[2022-11-18 10:22] LABS: Absolute Lymphocyte Count 2.05 X10^3/uL (0.83-4.51); Absolute Neutrophil Count 2.8 X10^3/uL (2.0-7.7); Basophil# 0.04 X10^3/uL; Basophil% 0.7 % (0-1); Eosinophil# 0.11 X10^3/uL; Hematocrit 42.7 % (37-47); Lymphocyte # 2.05 X10^3/ul (0.83-4.51); Lymphocyte % 36.3 % (19-41); Mean Corp Hgb Conc 32.8 g/dL (32-36); Mean Corpuscular Hgb 31.2 pg (27.0-32.0); Mean Corpuscular Volume 95.1 fL (81-99); Mean Platelet Vol. 9.9 fl (6.2-12.0); Monocyte# 0.59 X10^3/uL; Monocyte% 10.5 % (0-10); NRBC Flagged by Analyzer 0 % (0-5); Neutrophil # 2.84 X10^3/uL (2.7-7.7); Neutrophil % 50.3 % (47-70); Platelet Count 256 K/mm3 (150-450); RBC Distribution Width CV 12.9 % (11.6-14.6); RBC Distribution Width SD 45.5 fl (35.1-43.9); Red Blood Count 4.49 M/mm3 (4.2-5.4); White Blood Count 5.6 K/mm3 (4.4-11.0)
[2022-11-18 10:33] LABS: Erythrocyte Sedimentation Rate 7 mm/hr (0-30)
[2022-11-18 11:02] LABS: PTHIN 56.7 pg/mL (18.4-80.1)
[2022-11-18 11:07] LABS: Vitamin D,25 Hydroxy 37.8 ng/mL
[2022-11-18 11:13] LABS: Hemoglobin A1c 5.2 % (3.8-5.6)
[2022-11-18 11:25] LABS: ALB/GLOB Ratio 1.4 RATIO (0.9-2.4); AST(SGOT) 25 U/L (15-37); Alanine Aminotransfer ALT/SGPT 34 U/L (13-56); Albumin, Serum 4.2 g/dL (3.2-5.0); Alkaline Phosphatase 54 U/L (45-117); Anion Gap 3 (5-15); BUN 15 mg/dL (7-18); BUN/Creat Ratio 27.4 RATIO (10-20); CRP < 2.90 mg/L (0.0-3.0); Calcium,Total 9.2 mg/dL (8.5-10.1); Chloride 108 mmol/L (98-107); Creatinine, Serum 0.55 mg/dL (0.55-1.02); EST Glomerular Filtration Rate 116 mL/min (>60); Est Glom Filt Rate - Afr Amer 141 mL/min (>60); Free T3 2.8 pg/mL (2.18-3.98); Globulin 3.1 g/dL (2.2-4.2); Glucose 104 mg/dL (74-106); Magnesium 2.2 mg/dL (1.6-2.6); Potassium 3.8 mmol/L (3.5-5.1); Protein, Total 7.3 g/dL (6.4-8.2); Sodium Level 139 mmol/L (136-145)
[2022-11-21 15:08] LABS: PROEL- A/G Ratio 1.4 (0.7-1.7); PROEL- Alpha-1 Globulin 0.2 g/dL (0.0-0.4); PROEL- Alpha-2 Globulin 0.9 g/dL (0.4-1.0); PROEL- Beta Globulin 0.9 g/dL (0.7-1.3); PROEL- Gamma Globulin 0.9 g/dL (0.4-1.8); PROEL- Globulin, Total 2.8 g/dL (2.2-3.9); PROEL- TOTAL PROTEIN 6.8 g/dL (6.0-8.5)
[2022-11-22 14:17] LABS: Anti-Nuclear Antibody Test Negative (.)
== END | disposition home or self-care (01) ==
LOC: MFPLAB 08:43
PROVIDERS: PCP Family Medicine; Visit Provider Family Medicine
DX: E55.9 Vitamin D deficiency, unspecified (principal); E78.5 Hyperlipidemia, unspecified; R53.81 Other malaise; R53.83 Other fatigue; K90.0 Celiac disease; Z79.899 Other long term (current) drug therapy
CPT/HCPCS: 36415; 80053; 82306; 83036; 83735; 83970; 84165; 84443; 84481; 85025; 85652; 86038; 86140

== ENCOUNTER 2022-11-27 23:38 | Emergency (ER) | payer MEDICARE, OTHER, SELFPAY ==
--- NOTE | 2022-11-27 00:10 | RAD_ITS ---
INDICATION: chest pain EXAMINATION/TECHNIQUE: X-RAY - XR Chest 2 Views COMPARISON: 12/03/2014. FINDINGS: LINES/DEVICES: None. LUNGS: No consolidation or evidence of an effusion. No evidence of edema or a pneumothorax. MEDIASTINUM AND CARDIOVASCULAR STRUCTURES: Cardiac silhouette is normal in size and contour. Mediastinum is unremarkable. BONES AND SOFT TISSUES: No acute abnormality. RAD/Chest PA and Lateral IMPRESSION: No evidence of cardiopulmonary disease. Electronically Signed: Abner Ndiaye DO at 0:39 EDT ,
[2022-11-27 23:39] VITALS: BP 173/102; PULSE 97; RESP 17; TEMP 36.9; O2SAT 98
--- NOTE | 2022-11-27 23:49 | EKG12_ITS ---
Test Reason : CP Blood Pressure : / mmHG Vent. Rate : 098 BPM Atrial Rate : 098 BPM P-R Int : 128 ms QRS Dur : 080 ms QT Int : 362 ms P-R-T Axes : 060 043 056 degrees QTc Int : 462 ms Normal sinus rhythm Normal ECG Confirmed by ORQUIDEA TUTTLE, DELIO ([id number]), food expeditor TODD PAREDES ([id number]) on 11/28/2022 11:41:31 AM Referred By: TL Confirmed By:DELIO HEARD MD
--- NOTE | 2022-11-27 23:49 | ED.VIS.CHEST ---
HPI History of Present Illness Chief Complaint: Chest Pain Informant: patient Narrative Narrative: Presents by EMS chest pressure 8:30 PM while watching TV. No radicular symptoms. No dyspnea nausea or diaphoresis. Status post aspirin and 1 nitroglycerin by EMS. States minimal relief. States only mild symptoms at this time. History of hyperlipidemia. Denies diabetes hypertension or tobacco. Family history of SD in her brother and mother however they are over 55. Sister had a stroke. She reports she had a heart cath in the that was negative due to similar symptoms when she ended with a heart cath in [place]. No interventions. Denies recent cough. Prior Similar Symptoms: Yes and - (Reported asthma attack in the ) CVD Risk Factors: Positive for Hypercholesterolemia; Negative for Hypertension, Diabetes, Family History 1' </=55 or Smoking PE Risk Factors: Negative for Prior DVT or PE [facility] Medical History Asthma Celiac disease Home Medications amlodipine 2.5 mg tablet 2.5 mg PO DAILY 11/27/22 [History Last Taken Unknown] rosuvastatin 20 mg tablet 20 mg PO DAILY 11/27/22 [History Last Taken Unknown] Allergy/AdvReac Type Severity Reaction Status Date / Time No Known Allergies Allergy Verified 11/27/22 23:44 Social History Smoking Status: Never smoker ROS [facility] [[email or web address] ED Constitutional Constitutional ED: Denies chills, fever(s) or sweats Eyes Eyes: Denies change in vision ENT ENT ED: Denies dysphagia or sore throat Cardiovascular Cardiovascular: Reports chest pain; Denies leg edema, palpitations or racing heartbeat Respiratory/Chest Respiratory/Chest: Denies cough, dyspnea or dyspnea on exertion Gastrointestinal Gastrointestinal: Denies abdominal pain, diarrhea, nausea or vomiting Genitourinary Genitourinary ED: Denies dysuria, hematuria or urinary frequency Musculoskeletal Musculoskeletal: Denies back pain, extremity pain or neck pain Integumentary Denies rash or wounds Neurologic Neurologic: Denies headache(s), paresthesias or weakness EXAM Physical Exam Const Vital Signs: 11/27/22 23:39 11/27/22 23:46 11/27/22 23:57 Temperature 98.4 F Temperature Source Oral Pulse Rate 97 Respiratory Rate 17 Respiratory Effort Normal Blood Pressure 173/102 H Blood Pressure Mean 125 Pulse Ox 98 98 Oxygen Delivery Method Room Air Room Air 11/28/22 00:39 11/28/22 01:00 11/28/22 02:00 Temperature Temperature Source Pulse Rate 90 88 78 Respiratory Rate 16 16 13 Respiratory Effort Blood Pressure 137/73 H 116/64 130/60 H Blood Pressure Mean 94 81 83 Pulse Ox 95 100 98 Oxygen Delivery Method Room Air Room Air Room Air Positive well nourished and well developed General Appearance ED: well developed and NAD HEENT Reports moist mucous membranes normocephalic and atraumatic Eyes PERRL, EOMs intact bilaterally and conjunctivae normal General Eye ED: Yes normal appearance of both eyes Neck no lymphadenopathy and supple General: Negative for tenderness Chest Wall Chest: Negative for tenderness Resp normal respiratory effort and normal air movement Effort and Inspection: symmetric chest movement; Negative for respiratory distress Cardio regular rate, regular rhythm and no murmurs Peripheral Pulses: pulses 2+ throughout GI normal to inspection, nondistended, normoactive bowel sounds and non-tender Palpation: Negative for guarding or rebound tenderness present Back/Spine no CVA tenderness and no thoracic nor lumbar tenderness Extremity normal to inspection General Extremety ED: Negative for edema or tenderness General Extremity: Negative for edema Neuro oriented x3 and no sensory deficits noted Sensorium / Orientation: awake and alert Skin no rashes or lesions noted and no wounds Heart Score History: Slightly/Non-Suspicious ECG: Normal Age: >/= 65 years Risk Factors: 1 or 2 Risk Factors Troponin: </= Normal Limit Score: 3 MDM MDM MDM Narrative Medical decision making narrative: Interventions / MDM: Differential diagnosis: Chest pain, ACS Diagnosis considered but do not suspect: Pneumothorax however normal symmetric lung sounds, negative chest x-ray. PE however no dyspnea symptoms ,98% on room air. My EKG interpretation: Sinus rate of 98, no ST or T wave changes. Imaging independently reviewed and interpreted by myself: 2 view chest x-ray: No pneumothorax, no acute process External documents reviewed: N/A Test considered but not ordered:N/A ED course: Presented with chest pressure status post aspirin and 1 nitro by EMS symptom subsiding. EKG normal. Cardiac work-up initiated. Two-view chest x-ray negative. 0045: Initial troponin 5 hemoglobin 13 being creatinine 0.64. Glucose 126. Symptoms very mild at this time. Heart score is a 3. Blood pressure initially 173/102 on arrival, currently 137/73 without intervention. Significant other currently present, patient updated on results. Awaiting delta troponin. Re-evaluation: 0210: Currently symptom-free. Delta troponin at the lab and pending. 0240: Delta troponin 7. Negative within the algorithm. Remains symptom-free. Discharged with outpatient follow-up and further testing. Return precautions. All questions were answered. Disposition discussed with patient/family/significant other: Patient and significant other Case discussed with consulting clinician: N/A Lab Data Attestation: I reviewed the patient's lab results. Labs: Laboratory Results - last 24 hr 11/27/22 11/27/22 11/28/22 23:52 23:52 02:00 WBC 8.1 RBC 4.21 Hgb 13.2 Hct 40.2 MCV 95.5 MCH 31.4 MCHC 32.8 RDW Std Deviation 45.5 H RDW Coeff of Wallace 12.8 Plt Count 253 MPV 9.6 Immature Gran % (Auto) 0.200 Neut % (Auto) 49.6 Lymph % (Auto) 36.3 Mckenzie % (Auto) 11.8 H Eos % (Auto) 1.6 Baso % (Auto) 0.5 Absolute Neuts (auto) 4.0 Absolute Lymphs (auto) 2.93 Nucleated RBC % 0 Sodium 139 Potassium 3.7 Chloride 109 H Carbon Dioxide 26.0 Anion Gap 4 L BUN 15 Creatinine 0.64 Est GFR (MDRD) Af Amer 118 Est GFR (MDRD) Non-Af 97 BUN/Creatinine Ratio 23.4 H Glucose 126 H Calcium 9.4 Troponin I High Sens 5 7 Radiography Diagnostic Testing: Clinical Impression(s) from Imaging Studies Chest X-Ray 11/27/22 00:10 IMPRESSION: No evidence of cardiopulmonary disease. Electronically Signed: bAner Ndiaye DO at 0:39 EDT , Discharge Plan Triage Chief Complaint: Chest Pain ED Provider: Blayne Valdes Dx/Rx/DC Orders Clinical Impression: Chest pain, Hx of hyperlipidemia, Elevated blood pressure reading Instructions: ED Chest Pain, Uncertain Cause Prescriptions: No Action amlodipine 2.5 mg tablet 2.5 mg PO DAILY rosuvastatin 20 mg tablet 20 mg PO DAILY Primary Care Provider: Marcus Bernal Referrals: Marcus Bernal MD [Primary Care Provider] - 3-5 Days Activity Restrictions/Additional Instructions: Cardiac work-up was negative. Blood pressure elevated on arrival improved without any intervention. Follow-up with your doctor for further testing as outpatient. Return if any worsening symptoms. Disposition Disposition: Home, Self Care
[2022-11-27 23:57] VITALS: O2SAT 98
[2022-11-28 00:05] LABS: Absolute Lymphocyte Count 2.93 X10^3/uL (0.83-4.51); Basophil# 0.04 X10^3/uL; Basophil% 0.5 % (0-1); Eosinophil# 0.13 X10^3/uL; Eosinophils% 1.6 % (0-5); Hematocrit 40.2 % (37-47); Hemoglobin 13.2 g/dL (12.0-15.0); Lymphocyte # 2.93 X10^3/ul (0.83-4.51); Lymphocyte % 36.3 % (19-41); Mean Corp Hgb Conc 32.8 g/dL (32-36); Mean Corpuscular Hgb 31.4 pg (27.0-32.0); Mean Corpuscular Volume 95.5 fL (81-99); Mean Platelet Vol. 9.6 fl (6.2-12.0); Monocyte# 0.95 X10^3/uL; Monocyte% 11.8 % (0-10); NRBC Flagged by Analyzer 0 % (0-5); Neutrophil # 4.01 X10^3/uL (2.7-7.7); Neutrophil % 49.6 % (47-70); Platelet Count 253 K/mm3 (150-450); RBC Distribution Width CV 12.8 % (11.6-14.6); RBC Distribution Width SD 45.5 fl (35.1-43.9); Red Blood Count 4.21 M/mm3 (4.2-5.4); White Blood Count 8.1 K/mm3 (4.4-11.0)
[2022-11-28 00:20] LABS: Anion Gap 4 (5-15); BUN 15 mg/dL (7-18); BUN/Creat Ratio 23.4 RATIO (10-20); Calcium,Total 9.4 mg/dL (8.5-10.1); Chloride 109 mmol/L (98-107); Creatinine, Serum 0.64 mg/dL (0.55-1.02); EST Glomerular Filtration Rate 97 mL/min (>60); Est Glom Filt Rate - Afr Amer 118 mL/min (>60); Glucose 126 mg/dL (74-106); Potassium 3.7 mmol/L (3.5-5.1); Sodium Level 139 mmol/L (136-145); Troponin-I HS (w/2H Reflex) 5 pg/mL (3.0-54.0)
[2022-11-28 00:39] VITALS: BP 137/73; PULSE 90; RESP 16; O2SAT 95
[2022-11-28 01:00] VITALS: BP 116/64; PULSE 88; RESP 16; O2SAT 100
[2022-11-28 01:55] LABS: Reflex Troponin-HS? (from REC) Y
[2022-11-28 02:00] VITALS: BP 130/60; PULSE 78; RESP 13; O2SAT 98
[2022-11-28 02:36] LABS: Troponin-I HS 7 pg/mL (3.0-54.0)
[2022-11-28 02:46] VITALS: BP 135/63; PULSE 86; RESP 16; TEMP 36.7
== END 2022-11-28 02:48 | disposition home or self-care (01) ==
PROVIDERS: Emergency Provider Emergency Medicine; PCP Family Medicine; Visit Provider Emergency Medicine
DX: R07.9 Chest pain, unspecified (principal); E78.00 Pure hypercholesterolemia, unspecified; R03.0 Elevated blood-pressure reading, without diagnosis of hypertension; Z79.899 Other long term (current) drug therapy
CPT/HCPCS: 71046; 80048; 84484; 85025; 93005; 99285; A4216

== ENCOUNTER → 2022-11-28 | Outpatient (CLI) | payer MEDICARE, OTHER, SELFPAY ==
[2022-11-28 18:00] LABS: Absolute Lymphocyte Count 1.03 X10^3/uL (0.83-4.51); Absolute Neutrophil Count 5.9 X10^3/uL (2.0-7.7); Basophil# 0.02 X10^3/uL; Basophil% 0.3 % (0-1); Hematocrit 44.5 % (37-47); Hemoglobin 14.8 g/dL (12.0-15.0); Lymphocyte # 1.03 X10^3/ul (0.83-4.51); Lymphocyte % 14.6 % (19-41); Mean Corp Hgb Conc 33.3 g/dL (32-36); Mean Corpuscular Hgb 31.6 pg (27.0-32.0); Mean Corpuscular Volume 95.1 fL (81-99); Mean Platelet Vol. 10.5 fl (6.2-12.0); Monocyte# 0.09 X10^3/uL; Monocyte% 1.3 % (0-10); NRBC Flagged by Analyzer 0 % (0-5); Neutrophil # 5.91 X10^3/uL (2.7-7.7); Neutrophil % 83.5 % (47-70); Platelet Count 264 K/mm3 (150-450); RBC Distribution Width SD 45.6 fl (35.1-43.9); Red Blood Count 4.68 M/mm3 (4.2-5.4); White Blood Count 7.1 K/mm3 (4.4-11.0)
[2022-11-28 18:23] LABS: D-Dimer Quantitative (DVT/PE) < 0.27 FEU/ug/m (0.27-0.49)
[2022-11-28 18:54] LABS: ALB/GLOB Ratio 1.1 RATIO (0.9-2.4); AST(SGOT) 29 U/L (15-37); Alanine Aminotransfer ALT/SGPT 46 U/L (13-56); Albumin, Serum 4.4 g/dL (3.2-5.0); Alkaline Phosphatase 62 U/L (45-117); Anion Gap 7 (5-15); BUN 11 mg/dL (7-18); BUN/Creat Ratio 17.8 RATIO (10-20); Calcium,Total 9.8 mg/dL (8.5-10.1); Chloride 109 mmol/L (98-107); Creatinine, Serum 0.62 mg/dL (0.55-1.02); EST Glomerular Filtration Rate 101 mL/min (>60); Est Glom Filt Rate - Afr Amer 122 mL/min (>60); Globulin 3.9 g/dL (2.2-4.2); Glucose 122 mg/dL (74-106); Potassium 3.9 mmol/L (3.5-5.1); Protein, Total 8.3 g/dL (6.4-8.2); Sodium Level 139 mmol/L (136-145)
== END | disposition home or self-care (01) ==
LOC: MFPLAB 16:25
PROVIDERS: PCP Family Medicine; Visit Provider Family Medicine
DX: R07.89 Other chest pain (principal); K90.0 Celiac disease
CPT/HCPCS: 36415; 80053; 85025; 85379

== ENCOUNTER → 2022-12-01 | Outpatient (CLI) | payer MEDICARE, OTHER, SELFPAY ==
--- NOTE | 2022-12-01 08:10 | RAD_ITS ---
STUDY: X-RAY - ESOPHAGUS (BARIUM SWALLOW) WITH FLUOROSCOPY REASON FOR EXAM: Female, 72 years old. shobha celiac and atypical chest pain, concern for esophageal dysfu TECHNIQUE: 26 view(s) of the esophagus were obtained following swallowing of barium. FLUOROSCOPY TIME (if supplied): (32 seconds) minutes/seconds. 12.34 mGy COMPARISON: None. FINDINGS: There is no demonstrated esophageal foreign body. There is no demonstrated stricture or mucosal abnormality. Normal gastroesophageal junction, without a demonstrated hiatal hernia. The patient ingested a 12 mm tablet of barium without any difficulty. There is atherosclerotic tortuosity of the aortic arch and descending thoracic aorta. Normal visualized pulmonary parenchyma. There are diffuse degenerative changes of the visualized thoracic spine. RAD/Esophagus Dual Contrast IMPRESSION: Normal plain film x-ray examination (barium swallow) of the esophagus. Electronically Signed: Tung Salazar MD at 15:16 EDT ,
== END | disposition home or self-care (01) ==
LOC: RAD 08:03
PROVIDERS: PCP Family Medicine; Referring Provider Family Medicine; Visit Provider Family Medicine
DX: R07.89 Other chest pain (principal)
CPT/HCPCS: 74221

== ENCOUNTER → 2022-12-05 | Outpatient (CLI) | payer MEDICARE, OTHER, SELFPAY ==
--- NOTE | 2022-12-05 18:50 | CT_ITS ---
STUDY: CT CHEST WITHOUT CONTRAST REASON FOR EXAM: Female, 72 years old. Chest wall pain on L and atypical chest pain RADIATION DOSAGE (If Supplied By Facility): CTDIvol = ( 9.76 ) mGy, DLP = ( 346.17 ) mGycm TECHNIQUE: Transaxial imaging was performed without the administration of intravenous contrast material. Multiplanar coronal and sagittal images were reformatted. Individualized dose optimization techniques were used for this CT. COMPARISON: Comparison is made with prior study dated February 25, 2022. FINDINGS: CHEST Small benign-appearing bilateral axillary lymph nodes. Stable mild degree of increased markings in the posterior aspect of the lingular segment of the left upper lobe as well as the medial aspect of the right middle lobe suggestive of either scarring and/or atelectasis. There is no demonstrated pleural abnormality. There are calcifications of the coronary arteries. There are multiple small lymph nodes within the mediastinum, which are normal in size and morphology most compatible with reactive lymph hyperplasia. Normal hilar regions. Normal unenhanced pulmonary arteries. Normal aorta arch and descending thoracic aorta. There are degenerative changes of the thoracic spine. Small hiatal hernia. CT/Chest without Contrast IMPRESSION: Stable examination. Electronically Signed: Tung Salazar MD at 12:45 EDT ,
== END | disposition home or self-care (01) ==
LOC: CT 18:48
PROVIDERS: PCP Family Medicine; Referring Provider Family Medicine; Visit Provider Family Medicine
DX: R07.89 Other chest pain (principal)
CPT/HCPCS: 71250

== ENCOUNTER → 2022-12-30 | Outpatient (CLI) | payer MEDICARE, OTHER, SELFPAY ==
--- NOTE | 2022-12-30 10:00 | RAD_ITS ---
STUDY: X-RAY - LUMBOSACRAL SPINE REASON FOR EXAM: Female, 72 years old. Back pain. TECHNIQUE: 6 view(s) of the lumbosacral spine, including lateral flexion and extension views, were obtained. COMPARISON: October 28, 2015. FINDINGS: Osteopenia. Normal lumbar lordosis. There is no substantial scoliosis. There is normal alignment of the vertebrae. Limited flexion and extension with no abnormal motion. Diffuse lower thoracic and lumbosacral facet sclerosis. Diffuse intervertebral disc space narrowing most marked at L2-3, L3-4 and L4-5 with osteophytes. Normal bilateral sacral ala, sacroiliac joints, and visualized sacrum. Vascular calcification. Cholecystectomy clips. RAD/L/S Spine w Bend Min 6 Vw IMPRESSION: Osteopenia with limited flexion and extension and no abnormal motion. Diffuse mild lumbosacral spondylosis as described. Electronically Signed: Rudi Cornejo MD at 15:28 EDT ,
== END | disposition home or self-care (01) ==
LOC: MTRAD 09:42
PROVIDERS: PCP Family Medicine; Referring Provider Family Medicine; Visit Provider Family Medicine
DX: M54.50 Low back pain, unspecified (principal)
CPT/HCPCS: 72114

== ENCOUNTER → 2023-01-25 | Outpatient (CLI) | payer MEDICARE, OTHER, SELFPAY ==
[2023-01-25 18:02] LABS: AST(SGOT) 24 U/L (15-37); Alanine Aminotransfer ALT/SGPT 33 U/L (13-56); Alkaline Phosphatase 63 U/L (45-117); Bilirubin, Direct 0.26 mg/dL (0.00-0.30); Globulin 3.8 g/dL (2.2-4.2); Lipase 40 U/L (13-75); Protein, Total 7.8 g/dL (6.4-8.2)
== END | disposition home or self-care (01) ==
PROVIDERS: PCP Family Medicine; Referring Provider Internal Medicine Gastroenterology; Visit Provider Internal Medicine Gastroenterology
DX: R10.9 Unspecified abdominal pain (principal)
CPT/HCPCS: 36415; 80076; 83690

== ENCOUNTER → 2023-01-26 | Outpatient (CLI) | payer MEDICARE, OTHER, SELFPAY ==
[2023-01-28 08:10] LABS: H. PYLORI STOOL AG Negative (Negative)
== END | disposition home or self-care (01) ==
LOC: MTLAB 07:31
PROVIDERS: PCP Family Medicine; Referring Provider Internal Medicine Gastroenterology; Visit Provider Internal Medicine Gastroenterology
DX: R10.9 Unspecified abdominal pain (principal)
CPT/HCPCS: 87338

== ENCOUNTER → 2023-02-03 | Outpatient (CLI) | payer MEDICARE, OTHER, SELFPAY ==
--- NOTE | 2023-02-03 09:28 | EKG12_ITS ---
Test Reason : PRE-OP Blood Pressure : / mmHG Vent. Rate : 065 BPM Atrial Rate : 065 BPM P-R Int : 154 ms QRS Dur : 078 ms QT Int : 390 ms P-R-T Axes : 052 027 053 degrees QTc Int : 405 ms Normal sinus rhythm Normal ECG Confirmed by ORQUIDEA TUTTLE, DELIO ([id number]), telegraph editor TODD PAREDES ([id number]) on 02/06/2023 12:59:00 PM Referred By: Abner Ferrer Confirmed By:DELIO HEARD MD
--- NOTE | 2023-02-03 09:55 | RAD_ITS ---
INDICATION: PREOP EXAMINATION/TECHNIQUE: X-RAY - XR Chest 2 Views COMPARISON: 11/28/2022 FINDINGS: LINES/DEVICES: None. LUNGS: No consolidation, edema or effusion. No pneumothorax. MEDIASTINUM AND CARDIOVASCULAR STRUCTURES: Cardiac silhouette not enlarged. Central airways and mediastinal contour are unremarkable. BONES AND SOFT TISSUES: Unremarkable. RAD/Chest PA and Lateral IMPRESSION: No radiographic evidence of acute cardiopulmonary disease. Electronically Signed: Brody Crenshaw MD at 0:51 EDT ,
[2023-02-03 10:26] LABS: International Normalized Ratio 1.1; Partial Thromboplast Time 29.7 Seconds (24.1-36.2); Prothrombin Time (Protime)PT. 14.1 SECONDS (11.7-14.9)
[2023-02-03 10:40] LABS: Anion Gap 4 (5-15); BUN 14 mg/dL (7-18); BUN/Creat Ratio 23.4 RATIO (10-20); Calcium,Total 9.6 mg/dL (8.5-10.1); Chloride 110 mmol/L (98-107); EST Glomerular Filtration Rate 105 mL/min (>60); Est Glom Filt Rate - Afr Amer 127 mL/min (>60); Glucose 92 mg/dL (74-106); Potassium 4.4 mmol/L (3.5-5.1); Sodium Level 142 mmol/L (136-145)
[2023-02-03 11:16] LABS: Absolute Lymphocyte Count 2.05 X10^3/uL (0.83-4.51); Absolute Neutrophil Count 3.1 X10^3/uL (2.0-7.7); Basophil# 0.03 X10^3/uL; Basophil% 0.5 % (0-1); Eosinophil# 0.12 X10^3/uL; Hemoglobin 13.9 g/dL (12.0-15.0); Lymphocyte # 2.05 X10^3/ul (0.83-4.51); Lymphocyte % 34.5 % (19-41); Mean Corp Hgb Conc 32.3 g/dL (32-36); Mean Corpuscular Hgb 31.1 pg (27.0-32.0); Mean Corpuscular Volume 96.2 fL (81-99); Mean Platelet Vol. 10.3 fl (6.2-12.0); Monocyte# 0.65 X10^3/uL; Monocyte% 10.9 % (0-10); NRBC Flagged by Analyzer 0 % (0-5); Neutrophil # 3.08 X10^3/uL (2.7-7.7); Neutrophil % 51.9 % (47-70); Platelet Count 259 K/mm3 (150-450); RBC Distribution Width CV 12.7 % (11.6-14.6); RBC Distribution Width SD 45.6 fl (35.1-43.9); Red Blood Count 4.47 M/mm3 (4.2-5.4); White Blood Count 5.9 K/mm3 (4.4-11.0)
== END | disposition home or self-care (01) ==
LOC: PSN 09:09
PROVIDERS: PCP Family Medicine; Referring Provider Orthopaedic Surgery; Visit Provider Orthopaedic Surgery
DX: Z01.818 Encounter for other preprocedural examination (principal); M48.061 Spinal stenosis, lumbar region without neurogenic claudication
CPT/HCPCS: 36415; 71046; 80048; 85025; 85610; 85730; 93005

== ENCOUNTER → 2023-11-20 | Outpatient (CLI) | payer MEDICARE, OTHER, SELFPAY ==
--- NOTE | 2023-11-20 08:32 | BI_ITS ---
MAMMOGRAPHY - BILATERAL SCREENING REASON FOR EXAM: Female, 73 years old. Routine annual screening examination. PERTINENT HISTORY: Non-contributory. TECHNIQUE: Digital bilateral breast elizabeth (3D mammographic acquisition) in the CC and MLO projections. 2-D mediolateral oblique (MLO) and craniocaudad (CC) views of both breasts were obtained. CAD: Full Field Digital Mammography with Computer Added Detection was performed. COMPARISON: Comparison is made with prior study dated November 15, 2022. FINDINGS: Breast Composition: The breasts are heterogeneously dense, which may obscure small masses. There are no dominant masses or suspicious calcifications. Stable small benign-appearing bilateral axillary lymph nodes. No other significant abnormalities are identified. There has been no significant change since the prior study. BI/SCRN MAMM (CAD)W/ELIZABETH BILAT IMPRESSION: Stable bilateral screening mammogram. Yearly follow-up mammogram recommended. (A) ASSESSMENT CATEGORY: BIRADS Category 2: Benign. A letter regarding these results will be sent to the patient by the facility within 30 days. Approximately 10% of breast cancers are not detected by mammography. A normal mammogram should not delay biopsy of a clinically suspicious abnormality. [id number] Electronically Signed: Tung Salazar MD at 9:50 EDT ,
== END | disposition home or self-care (01) ==
LOC: OPBI 08:32
PROVIDERS: PCP Family Medicine; Referring Provider Nurse Practitioner Family; Visit Provider Nurse Practitioner Family
DX: Z12.31 Encounter for screening mammogram for malignant neoplasm of breast (principal)
CPT/HCPCS: 77063; 77067

== ENCOUNTER → 2024-01-08 | Outpatient (CLI) | payer MEDICARE, OTHER, SELFPAY ==
--- NOTE | 2024-01-08 07:05 | US_ITS ---
STUDY: ABDOMINAL ULTRASOUND - RIGHT UPPER QUADRANT; ELASTOGRAPHY REASON FOR VISIT: Female, 73 years old. Fatty infiltration of the liver. TECHNIQUE: Ultrasound evaluation of the right upper quadrant was performed with real-time and static vincent-scale imaging. Point quantification shear wave elastography was performed ([facility]). TECHNICAL QUALITY: Adequate. COMPARISON: Comparison is made with prior study dated June 14, 2021. FINDINGS: Liver: The liver measures 14.1 cm. There is increased echogenicity consistent with fatty infiltration. The bile ducts are within normal limits. There is hepatic color flow. The direction of portal flow is hepatopetal. There is no demonstrated mass lesion. Median liver stiffness measured 8.1 kPa. Gallbladder: The patient is status post cholecystectomy. Common Bile Duct (C.B.D.): The common bile duct measures 6 mm. Pancreas: There is normal echogenicity of the visualized pancreas. There is no demonstrated pancreatic mass or cyst. Right Kidney: Normal size of the right kidney. The right kidney measures 11.8 cm x 4 cm x 4.5 cm. Normal renal cortex. The right cortex measures 1.1 cm. There is no demonstrated renal mass or cyst. There is no right hydronephrosis. US/ABD Limited w/ Elastography IMPRESSION: 1. Liver stiffness measures 8.1 kPa compatible with F2-F3 (Mild to moderate liver fibrosis) Metavir score. Electronically Signed: Tung Salazar MD at 10:35 EDT ,
[2024-01-08 08:10] LABS: Hematocrit 46.2 % (37-47); Hemoglobin 14.5 g/dL (12.0-15.0); Mean Corp Hgb Conc 31.4 g/dL (32-36); Mean Corpuscular Volume 98.7 fL (81-99); Mean Platelet Vol. 9.7 fl (6.2-12.0); Platelet Count 207 K/mm3 (150-450); RBC Distribution Width SD 47.4 fl (35.1-43.9); Red Blood Count 4.68 M/mm3 (4.2-5.4); White Blood Count 6.3 K/mm3 (4.4-11.0)
[2024-01-08 08:43] LABS: ALB/GLOB Ratio 1.1 RATIO (0.9-2.4); AST(SGOT) 25 U/L (15-37); Alanine Aminotransfer ALT/SGPT 33 U/L (13-56); Albumin, Serum 3.9 g/dL (3.2-5.0); Alkaline Phosphatase 58 U/L (45-117); Anion Gap 7 (5-15); BUN 14 mg/dL (7-18); BUN/Creat Ratio 22.3 RATIO (10-20); Calcium,Total 9.4 mg/dL (8.5-10.1); Chloride 109 mmol/L (98-107); Cholesterol 141 mg/dL (200); Creatinine, Serum 0.63 mg/dL (0.55-1.02); EST Glomerular Filtration Rate 99 mL/min (>60); Est Glom Filt Rate - Afr Amer 120 mL/min (>60); Globulin 3.5 g/dL (2.2-4.2); Glucose 104 mg/dL (74-106); High Density Lipoprotein 48 mg/dL; Magnesium 2.3 mg/dL (1.6-2.6); Potassium 3.9 mmol/L (3.5-5.1); Protein, Total 7.4 g/dL (6.4-8.2); Sodium Level 141 mmol/L (136-145); Triglycerides 137 mg/dL; Very Low Density Lipoprotein 27 mg/dL (5-40)
[2024-01-12 18:13] LABS: Microalbumin,Random Urine 14.3 mg/L (NO RANGE EST.)
== END | disposition home or self-care (01) ==
PROVIDERS: PCP Family Medicine; Referring Provider Internal Medicine Gastroenterology; Visit Provider Internal Medicine Gastroenterology
DX: I10 Essential (primary) hypertension (principal); K76.0 Fatty (change of) liver, not elsewhere classified; K90.0 Celiac disease; E78.5 Hyperlipidemia, unspecified
CPT/HCPCS: 36415; 76705; 76981; 80053; 80061; 82043; 82533; 82570; 83735; 85027

== ENCOUNTER → 2024-04-02 | Outpatient (CLI) | payer MEDICARE, OTHER, SELFPAY ==
[2024-04-02 10:08] LABS: Erythrocyte Sedimentation Rate 3 mm/hr (0-30)
[2024-04-02 10:09] LABS: Absolute Lymphocyte Count 1.97 X10^3/uL (0.83-4.51); Absolute Neutrophil Count 3.7 X10^3/uL (2.0-7.7); Basophil# 0.05 X10^3/uL; Basophil% 0.8 % (0-1); Eosinophil# 0.09 X10^3/uL; Eosinophils% 1.4 % (0-5); Hematocrit 43.9 % (37-47); Hemoglobin 14.1 g/dL (12.0-15.0); Lymphocyte # 1.97 X10^3/ul (0.83-4.51); Lymphocyte % 30.6 % (19-41); Mean Corp Hgb Conc 32.1 g/dL (32-36); Mean Corpuscular Hgb 30.7 pg (27.0-32.0); Mean Corpuscular Volume 95.4 fL (81-99); Mean Platelet Vol. 9.9 fl (6.2-12.0); Monocyte# 0.64 X10^3/uL; NRBC Flagged by Analyzer 0 % (0-5); Neutrophil # 3.67 X10^3/uL (2.7-7.7); Platelet Count 242 K/mm3 (150-450); RBC Distribution Width CV 12.7 % (11.6-14.6); RBC Distribution Width SD 44.4 fl (35.1-43.9); White Blood Count 6.4 K/mm3 (4.4-11.0)
[2024-04-02 13:26] LABS: ALB/GLOB Ratio 1.1 RATIO (0.9-2.4); AST(SGOT) 26 U/L (15-37); Alanine Aminotransfer ALT/SGPT 35 U/L (13-56); Alkaline Phosphatase 66 U/L (45-117); Anion Gap 9 (5-15); BUN 13 mg/dL (7-18); BUN/Creat Ratio 20.2 RATIO (10-20); Calcium,Total 9.7 mg/dL (8.5-10.1); Chloride 108 mmol/L (98-107); Creatinine, Serum 0.64 mg/dL (0.55-1.02); EST Glomerular Filtration Rate 96 mL/min (>60); Est Glom Filt Rate - Afr Amer 116 mL/min (>60); Globulin 3.6 g/dL (2.2-4.2); Glucose 112 mg/dL (74-106); Potassium 4.4 mmol/L (3.5-5.1); Protein, Total 7.6 g/dL (6.4-8.2); Sodium Level 141 mmol/L (136-145)
[2024-04-03 17:07] LABS: ANTINUCLEAR ANTIBODIES DIRECT Negative (Negative)
== END | disposition home or self-care (01) ==
LOC: MTLAB 08:47
PROVIDERS: PCP Family Medicine; Referring Provider Family Medicine; Visit Provider Family Medicine
DX: R53.83 Other fatigue (principal); R53.81 Other malaise
CPT/HCPCS: 36415; 80053; 84443; 85025; 85652; 86038

== ENCOUNTER → 2024-06-07 | Outpatient (CLI) | payer MEDICARE, OTHER, SELFPAY ==
[2024-06-07 18:25] LABS: AST(SGOT) 19 U/L (15-37); Alanine Aminotransfer ALT/SGPT 30 U/L (13-56); Albumin, Serum 4.2 g/dL (3.2-5.0); Alkaline Phosphatase 59 U/L (45-117); Bilirubin, Direct 0.12 mg/dL (0.00-0.30); CRP < 2.90 mg/L (0.0-3.0); Globulin 3.4 g/dL (2.2-4.2); Protein, Total 7.6 g/dL (6.4-8.2)
[2024-06-12 04:08] LABS: GGTP 16 IU/L (0-60)
== END | disposition home or self-care (01) ==
LOC: MTLAB 15:14
PROVIDERS: PCP Family Medicine; Referring Provider Internal Medicine Gastroenterology; Visit Provider Internal Medicine Gastroenterology
DX: R10.9 Unspecified abdominal pain (principal); K90.0 Celiac disease; I10 Essential (primary) hypertension
CPT/HCPCS: 36415; 80076; 82784; 82977; 83516; 86140; 86255

== ENCOUNTER → 2024-06-10 | Outpatient (CLI) | payer MEDICARE, OTHER, SELFPAY ==
[2024-06-11 13:09] LABS: H. PYLORI STOOL AG Negative (Negative)
== END | disposition home or self-care (01) ==
LOC: LAB 07:27
PROVIDERS: PCP Family Medicine; Referring Provider Internal Medicine Gastroenterology; Visit Provider Internal Medicine Gastroenterology
DX: K90.0 Celiac disease (principal); R10.9 Unspecified abdominal pain
CPT/HCPCS: 36415; 87338

== ENCOUNTER → 2024-11-04 | Outpatient (CLI) | payer MEDICARE, OTHER, SELFPAY ==
--- NOTE | 2024-11-04 10:50 | RAD_ITS ---
PROCEDURE: CHEST PA AND LATERAL 11/04/2024 REASON FOR EXAM: ATYPICAL CHEST PAIN TECHNIQUE: Frontal and lateral views of the chest. PA and lateral view COMPARISON: 02/03/2023 FINDINGS: The lungs appear unchanged. Pulmonary vascularity appears within limits. No focal consolidation. No pleural effusion or pneumothorax. The cardiac and mediastinal contours appear within limits. Status post cholecystectomy. The visualized osseous structures appear within limits. RAD/Chest PA and Lateral IMPRESSION: No evidence of acute disease. Reading Location: [id number]
[2024-11-04 11:05] LABS: Absolute Lymphocyte Count 1.49 X10^3/uL (0.83-4.51); Absolute Neutrophil Count 3.9 X10^3/uL (2.0-7.7); Basophil# 0.03 X10^3/uL; Basophil% 0.5 % (0-1); Eosinophil# 0.04 X10^3/uL; Eosinophils% 0.7 % (0-5); Hematocrit 42.1 % (37-47); Hemoglobin 14.1 g/dL (12.0-15.0); Lymphocyte # 1.49 X10^3/ul (0.83-4.51); Lymphocyte % 24.2 % (19-41); Mean Corp Hgb Conc 33.5 g/dL (32-36); Mean Corpuscular Hgb 31.6 pg (27.0-32.0); Mean Corpuscular Volume 94.4 fL (81-99); Mean Platelet Vol. 9.6 fl (6.2-12.0); Monocyte# 0.64 X10^3/uL; Monocyte% 10.4 % (0-10); NRBC Flagged by Analyzer 0 % (0-5); Neutrophil # 3.94 X10^3/uL (2.7-7.7); Platelet Count 256 K/mm3 (150-450); RBC Distribution Width CV 12.9 % (11.6-14.6); RBC Distribution Width SD 44.6 fl (35.1-43.9); Red Blood Count 4.46 M/mm3 (4.2-5.4); White Blood Count 6.2 K/mm3 (4.4-11.0)
[2024-11-04 11:12] LABS: Erythrocyte Sedimentation Rate 7 mm/hr (0-30)
[2024-11-04 11:31] LABS: ALB/GLOB Ratio 1.5 RATIO (0.9-2.4); AST(SGOT) 36 U/L (<=31); Alanine Aminotransfer ALT/SGPT 43 U/L (<=34); Albumin, Serum 4.5 g/dL (3.4-4.8); Alkaline Phosphatase 66 U/L (35-104); Anion Gap 12 (5-15); BUN 10 mg/dL (4-19); BUN/Creat Ratio 14.5 RATIO (10-20); Calcium,Total 9.5 mg/dL (7.6-11.0); Carbon Dioxide 22.2 mmol/L (21.0-32.0); Chloride 108 mmol/L (98-108); Creatinine, Serum 0.69 mg/dL (0.70-1.20); EST Glomerular Filtration Rate 92 (>60); Glucose 99 mg/dL (70-99); Potassium 4.1 mmol/L (3.3-5.1); Protein, Total 7.5 g/dL (5.9-8.4); Sodium Level 142 mmol/L (133-145)
[2024-11-04 11:33] LABS: CRP < 3.00 mg/L (0.0-3.0); Lipase 31 U/L (13-75); Magnesium 2.2 mg/dL (1.5-2.2)
[2024-11-04 11:36] LABS: Prothrombin Time (Protime)PT. 13.1 SECONDS (11.7-14.9)
[2024-11-05 12:08] LABS: ANTINUCLEAR ANTIBODIES DIRECT Negative (Negative)
== END | disposition home or self-care (01) ==
LOC: LAB 10:36
PROVIDERS: PCP Family Medicine; Referring Provider Family Medicine; Visit Provider Family Medicine
DX: R07.89 Other chest pain (principal); R42 Dizziness and giddiness; K90.0 Celiac disease; E07.89 Other specified disorders of thyroid
CPT/HCPCS: 36415; 71046; 80053; 83690; 83735; 85025; 85610; 85652; 86038; 86140

== ENCOUNTER → 2024-12-31 | Outpatient (CLI) | payer MEDICARE, OTHER, SELFPAY ==
--- NOTE | 2024-12-31 12:04 | NEURO ---
NCS and/or EMG Patient Report Ordering Doctor: Marcus Bernal DATE OF SERVICE: 12/31/24 Clinical Summary: 74 year old female patient presenting with symptoms of possible left foot dorsiflexion weakness. She denies having any numbness or tingling in the left lower extremity. She denies having any back pain. Nerve Conduction Studies Summary: Nerve conduction studies performed in the left lower extremity were within normal ranges. Needle Examination Summary: Needle examination of select muscles of the left lower extremity demonstrated a higher proportion of motor unit action potentials with reduced recruitment, increased amplitude, increased duration, and polyphasia in the left peroneus longus muscle. 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 There is no electrodiagnostic evidence of a left peroneal mononeuropathy or large-fiber peripheral polyneuropathy. Multi Select Codes Neurology Neurology Interp Codes: 76448-90 Musc test done w/n test comp (interp) (1) and 92736-42 Nrv cndj tst 5-6 studies (interp)
== END | disposition home or self-care (01) ==
LOC: PSN 09:59
PROVIDERS: PCP Family Medicine; Referring Provider Family Medicine; Visit Provider Family Medicine
DX: R29.898 Other symptoms and signs involving the musculoskeletal system (principal); R42 Dizziness and giddiness
CPT/HCPCS: 95886; 95908

== ENCOUNTER → 2025-04-11 | Outpatient (CLI) | payer MEDICARE, OTHER, SELFPAY ==
[2025-04-11 15:51] LABS: AST(SGOT) 41 U/L (<=31); Alanine Aminotransfer ALT/SGPT 64 U/L (<=34); Albumin, Serum 4.3 g/dL (3.4-4.8); Alkaline Phosphatase 61 U/L (35-104); Anion Gap 11 (5-15); BUN 19 mg/dL (4-19); BUN/Creat Ratio 27.2 RATIO (10-20); Calcium,Total 9.6 mg/dL (7.6-11.0); Carbon Dioxide 23.9 mmol/L (21.0-32.0); Chloride 107 mmol/L (98-108); Globulin 2.9 g/dL (2.2-4.2); Glucose 93 mg/dL (70-99); Potassium 4.2 mmol/L (3.3-5.1)
== END | disposition home or self-care (01) ==
LOC: MFPLAB 11:34
PROVIDERS: PCP Family Medicine; Visit Provider Family Medicine
DX: I10 Essential (primary) hypertension (principal)
CPT/HCPCS: 36415; 80053